=== PATIENT | female | born 1960 | race Caucasian/White ===

== ENCOUNTER 2017-12-30 11:14 | Emergency (ER) | payer OTHER ==
--- NOTE | 2017-12-30 13:21 | RAD ---
Indication: Twisting injury RIGHT ankle. Hematoma medial aspect of heel. Pain radiates to the ball and dorsum of the foot. Comparison: No relevant prior exams available on the [facility] PACS for comparison. Technique: AP, mortise, and lateral views RIGHT ankle. AP, lateral, and oblique views RIGHT foot. Report: Acute avulsion fracture from the posterior medial margin of the navicula corresponding with the tibialis posterior tendon insertion with up to 2.5 mm proximal retraction of the avulsed fragment. Overlying soft tissue swelling. Negative for additional fracture at the foot or ankle. Normal articular alignment. Os trigonum accessory ossicle. IMPRESSION: #. Navicula avulsion fracture corresponding with the tibialis posterior tendon insertion site.
--- NOTE | 2017-12-30 13:21 | RAD ---
Indication: Twisting injury RIGHT ankle. Hematoma medial aspect of heel. Pain radiates to the ball and dorsum of the foot. Comparison: No relevant prior exams available on the [facility] PACS for comparison. Technique: AP, mortise, and lateral views RIGHT ankle. AP, lateral, and oblique views RIGHT foot. Report: Acute avulsion fracture from the posterior medial margin of the navicula corresponding with the tibialis posterior tendon insertion with up to 2.5 mm proximal retraction of the avulsed fragment. Overlying soft tissue swelling. Negative for additional fracture at the foot or ankle. Normal articular alignment. Os trigonum accessory ossicle. IMPRESSION: #. Navicula avulsion fracture corresponding with the tibialis posterior tendon insertion site.
--- NOTE | 2017-12-30 13:49 | ED ---
Lower Extremity - HPI Summary HPI Summary: Patient presents with right ankle pain, swelling, bruising and inability to bear weight without pain. She reports she was letting her son's dogs out and as she was walking down the stairs, the cat ran by and she lost her footing, causing her to "miss the last step", rolling ankle. She's been using his crutches to avoid weightbearing since. Denies numbness, tingling, weakness. She took some ibuprofen last night however has not taken anything yet today. She also ice her ankle last night but is not ice today. No previous injury to this ankle or foot. - History of Current Complaint Chief Complaint: EDExtremityLower Stated Complaint: FALL/RT ANKLE INJURY Time Seen by Provider: 12/30/17 11:36 Hx Obtained From: Patient Pain Intensity: 5 - Allergies/Home Medications Allergies/Adverse Reactions: Allergies Allergy/AdvReac Type Severity Reaction Status Date / Time No Known Allergies Allergy Verified 12/30/17 11:21 Home Medications: Home Medications Biotin 1 mg PO DAILY 12/30/17 [History Confirmed 12/30/17] L.acidoph,Paracasei, B.lactis [Probiotic] 1 each PO DAILY 12/30/17 [History Confirmed 12/30/17] PMH/Surg Hx/FS Hx/Imm Hx Previously Healthy: Yes Endocrine/Hematology History: Denies: Hx Anticoagulant Therapy, Hx Blood Disorders, Hx Diabetes Cardiovascular History: Denies: Hx Hypertension, Hx Pacemaker/ICD History: Denies: Hx Renal Disease Musculoskeletal History: Denies: Hx Rheumatoid Arthritis, Hx Osteoporosis Sensory History: Reports: Hx Contacts or Glasses - READING Denies: Hx Hearing Aid Opthamlomology History: Reports: Hx Contacts or Glasses - READING Psychiatric History: Denies: Hx Panic Disorder - Cancer History Hx Chemotherapy: No Hx Radiation Therapy: No - Surgical History Surgery Procedure, Year, and Place: RIGHT ROTATOR CUFF REPAIR 08/22 [place]. CSECTION [facility] [place]. LASIK BILAT 2006 [facility] [place]. BREAST REDUCTION Hx Anesthesia Reactions: No Infectious Disease History: No Infectious Disease History: Denies: Traveled Outside the [place] in Last 30 Days - Family History Known Family History: Positive: Cardiac Disease, Diabetes - Social History Occupation: Employed Full-time - self-employed, cleaning business Lives: With Family Alcohol Use: Weekly Alcohol Amount: 1-2/WEEK Hx Substance Use: No Substance Use Type: Reports: None Hx Tobacco Use: No Smoking Status (MU): Never Smoked Tobacco Review of Systems Negative: Fatigue Negative: Chest Pain Negative: Shortness Of Breath Negative: Vomiting, Nausea Positive: no symptoms reported Positive: Arthralgia, Myalgia, Decreased ROM, Edema Positive: Bruising Neurological: Negative Psychological: Normal All Other Systems Reviewed And Are Negative: Yes Physical Exam Triage Information Reviewed: Yes Vital Signs On Initial Exam: Initial Vitals Temp Pulse Resp BP Pulse Ox 98.7 F 71 18 131/75 96 12/30/17 11:21 12/30/17 11:21 12/30/17 11:21 12/30/17 11:21 12/30/17 11:21 Vital Signs Reviewed: Yes Appearance: Positive: Well-Appearing, No Pain Distress, Obese Skin: Positive: Warm, Skin Color Reflects Adequate Perfusion, Dry - ecchymosis about the base of ankle and foot - no skin breakdown Eyes: Positive: EOMI ENT: Positive: Hearing grossly normal Respiratory/Lung Sounds: Positive: Breath Sounds Present Cardiovascular: Positive: Pulses are Symmetrical in both Upper and Lower Extremities - + 2 on Lt DP, + 1 on Rt DP - no foot edema but B/L swelling about malleoli Musculoskeletal: Positive: Limited @ - can move toes and ankle but very limited - stiff and painful to move, Pain @ - ATF ligament w/ edema and TTP, anterior ankle TTP, malleoli NTTP, MT's are NTTP, heel NTTP Neurological: Positive: Normal, Sensory/Motor Intact, Alert, Oriented to Person Place, Time, CN Intact II-III Psychiatric: Positive: Normal Diagnostics - Vital Signs Vital Signs Temp Pulse Resp BP Pulse Ox 12/30/17 11:21 98.7 F 71 18 131/75 96 - Laboratory Lab Statement: Any lab studies that have been ordered have been reviewed, and results considered in the medical decision making process. Lower Extremity Course/Dx - Course Course Of Treatment: XR: Rt navicular avulsion fx, at site of posterior tibialis insertion. Consult call out to Dr. Brina Rojas to place pt in CAM boot, non-weight bearing and f/u w/ ortho this week. She'll return sooner if danger s/sx present. - Diagnoses Provider Diagnoses: Closed avulsion fracture of navicular bone of right foot Discharge - Sign-Out/Discharge Documenting (check all that apply): Patient Departure - Discharge Plan Condition: Stable Disposition: HOME Prescriptions: Ibuprofen TAB* [Motrin TAB* 800 MG] 800 mg PO Q8HR PRN #20 tab PRN Reason: Pain Patient Education Materials: Crutch Instructions (ED), Foot Fracture in Adults (ED) Referrals: Og Vernon MD [Medical Doctor] - Additional Instructions: REST, ICE, ELEVATE AND KEEP CAM BOOT IN PLACE UNTIL SEEN BY ORTHOPEDICS - you may remove to shower and massage calf, move toes intermittently throughout the day - do not bear weight - use crutches. You may take ibuprofen alternating with acetaminophen as needed for pain Call orthopedics today to schedule follow-up this week. *If you develop numbness, tingling, weakness, swelling or skin discoloration, remove CAM boot and elevate leg for 20 minutes. If symptoms persist, return to ED - Billing Disposition and Condition Condition: STABLE Disposition: Home
[2017-12-30] MEDS ORDERED: Ibuprofen TAB* 800 MG PO ONE (14:04)
[2017-12-30 15:37] VITALS: BP 118/71
== END 2017-12-30 15:36 | disposition home or self-care (01) ==
LOC: ED 11:14
DX: S92.254A Nondisplaced fracture of navicular [scaphoid] of right foot, initial encounter for closed fracture (principal); X50.1XXA Overexertion from prolonged static or awkward postures, initial encounter; Y93.89 Activity, other specified; Y92.008 Other place in unspecified non-institutional (private) residence as the place of occurrence of the external cause; Z82.49 Family history of ischemic heart disease and other diseases of the circulatory system; Z83.3 Family history of diabetes mellitus
CPT/HCPCS: 99282; A9270-GY